=== PATIENT | male | born 1960 | race Two or more races ===

== ENCOUNTER 2019-12-27 09:50 | Emergency (ER) | payer OTHER ==
--- NOTE | 2019-12-27 11:02 | RADIOLOGY REPORT (SQ) ---
EXAM DESCRIPTION: CHEST SINGLE VIEW COMPLETED DATE/TIME: 12/27/2019 10:55 am REASON FOR STUDY: sob COMPARISON: None. EXAM PARAMETERS: NUMBER OF VIEWS: One view. TECHNIQUE: Single frontal radiographic view of the chest acquired. RADIATION DOSE: NA LIMITATIONS: None. FINDINGS: LUNGS AND PLEURA: No opacities, masses or pneumothorax. No pleural effusion. MEDIASTINUM AND HILAR STRUCTURES: No masses. Contour normal. HEART AND VASCULAR STRUCTURES: Heart normal in size. Normal vasculature. BONES: No acute findings. HARDWARE: None in the chest. OTHER: No other significant finding. IMPRESSION: NO ACUTE RADIOGRAPHIC FINDING IN THE CHEST. TECHNICAL DOCUMENTATION: JOB ID: [id number] 2010 [employer]- All Rights Reserved Reading location - IP/workstation name: [email or web address]
--- NOTE | 2019-12-27 11:18 | ER Document Report ---
ED General - General Chief Complaint: Shortness Of Breath Stated Complaint: SHORTNESS OF BREATH Time Seen by Provider: 12/27/19 10:16 Primary Care Provider: LENNY PEREIRA MD [Primary Care Provider] - Follow up as needed Notes: 59-year-old male presents the emergency department complaining of shortness of breath, wheezing, productive cough and rhinorrhea starting on December 08. Patient states that he flew into [place] on December 07. Complains that his mucus started out as white and then became clear and then last night became yellow. Denies fever, admits chills, denies sweats. Denies nausea or vomiting, admits some diarrhea, admits back pain when he has a cough. Denies any chest pain. Patient states he has a history of asthma, ran out of his Advair 6 days ago and has been using his Proventil every 4 hours and self treating with Mucinex. Complains that his doctor has not yet given him a prescription for azithromycin or any other antibiotic based off of his symptoms. - Related Data Allergies/Adverse Reactions: latex [Latex] Allergy (Verified 04/11/14 12:27) Home Medications: xyzal, singulair, advair, albuterol, cholestrol, metformin, citalopram, micardis, Past Medical History - General Information source: Patient - Social History Smoking Status: Never Smoker Chew tobacco use (# tins/day): No Frequency of alcohol use: Rare Drug Abuse: None Family History: Hypertension Patient has suicidal ideation: No Patient has homicidal ideation: No - Past Medical History Cardiac Medical History: Reports: Hx Hypercholesterolemia Pulmonary Medical History: Reports: Hx Asthma Endocrine Medical History: Reports: Hx Diabetes Mellitus Type 2 GI Medical History: Reports: Hx Gastroesophageal Reflux Disease Psychiatric Medical History: Reports: Hx Post Traumatic Stress Disorder - Immunizations Hx Diphtheria, Pertussis, Tetanus Vaccination: No Review of Systems - Review of Systems Constitutional: See HPI, Diaphoresis. denies: Fever EENT: See HPI, Nose congestion Cardiovascular: No symptoms reported Respiratory: See HPI, Cough, Short of breath, Wheezing. denies: Hurts to breathe Gastrointestinal: See HPI, Diarrhea Musculoskeletal: See HPI, Back pain -: Yes All other systems reviewed and negative Physical Exam - Vital signs Vitals: Temp Pulse Resp BP Pulse Ox 99.0 F 88 20 117/78 97 12/27/19 10:05 12/27/19 10:05 12/27/19 10:05 12/27/19 10:05 12/27/19 10:05 Interpretation: Normal - Notes Notes: GENERAL: Alert, interacts well. No acute distress. Voice consistent with nasal congestion. HEAD: Normocephalic, atraumatic EYES: Pupils equal, round and reactive to light, extraocular movements intact. ENT: Oral mucosa moist, tongue midline. NECK: Full range of motion, supple, trachea midline. LUNGS: Mild expiratory wheezing, no rales or rhonchi, no respiratory distress, no accessory muscle use. No tachypnea. HEART: Regular rate and rhythm, no murmurs, gallops, rubs. ABDOMEN: Soft, nontender, nondistended, bowel sounds present in all 4 quadrants. EXTREMITIES: Moves all 4 extremities spontaneously, no edema, radial pulses 2/4 bilaterally. No cyanosis. NEUROLOGICAL: Alert and oriented x3, normal speech. PSYCH: Normal mood, normal affect. SKIN: Warm, Dry, normal turgor. Course - Re-evaluation Re-evalutation: 12/27/19 11:16 Chest x-ray unremarkable. 12/27/19 11:16 There is no tachypnea, tachycardia or hypoxia. Patient is in no respiratory distress. No evidence of bacterial infection, no indication for pneumonia. In this asthmatic who appears to have a viral upper respiratory tract infection with acute wheezy bronchitis patient will be treated with steroids. Patient has since gotten all of his inhalers refilled. Patient will be discharged to home. Patient is moderate to high risk for COVID19, swab will be performed. - Vital Signs Vital signs: Temp Pulse Resp BP Pulse Ox 99.0 F 88 20 117/78 97 12/27/19 10:05 12/27/19 10:05 12/27/19 10:05 12/27/19 10:05 12/27/19 10:05 Discharge - Discharge Clinical Impression: Viral upper respiratory tract infection with cough Acute asthma exacerbation Qualifiers: Asthma severity: moderate Asthma persistence: persistent Qualified Code(s): J45.41 - Moderate persistent asthma with (acute) exacerbation Condition: Stable Disposition: HOME, SELF-CARE Additional Instructions: Please use nasal saline rinses such as a NetiPot or NeilMed Sinus Rinses. Please use nasal steroid such as Nasonex 1 squirt per nostril twice a day to decrease inflammation and swelling. Please also use zqcm-com-zzocxll decongestants according to their directions on the box such as Sudafed during the day and Benadryl at night. Please take the steroids as directed until they are gone. Today you have been tested for COVID19. Please self isolate until these test results come back or until you have been symptom free for at least 3 days. If you develop worsening shortness of breath please return to the emergency department. Your chest x-ray did not show any signs of pneumonia. You do not need antibiotics at this time. Prescriptions: Prednisone [Deltasone 20 mg Tablet] 2 tab PO DAILY #10 tablet Referrals: LENNY PEREIRA MD [Primary Care Provider] - Follow up as needed
[2019-12-27 11:38] LABS: A TYPE INFLUENZA AG POSITIVE (NEGATIVE); B INFLUENZA AG NEGATIVE (NEGATIVE)
[2019-12-27 12:47] VITALS: BP 117/89
== END 2019-12-27 12:48 | disposition home or self-care (01) ==
LOC: ER 09:50
DX: J11.1 Influenza due to unidentified influenza virus with other respiratory manifestations (principal); J45.41 Moderate persistent asthma with (acute) exacerbation; E78.00 Pure hypercholesterolemia, unspecified; E11.9 Type 2 diabetes mellitus without complications; Z91.040 Latex allergy status; Z79.84 Long term (current) use of oral hypoglycemic drugs
CPT/HCPCS: 71045; 87635; 87804; 99283

== ENCOUNTER 2020-01-01 15:07 | Emergency (ER) | payer OTHER ==
--- NOTE | 2020-01-01 15:30 | ER Document Report ---
ED Respiratory Problem - General Chief Complaint: Breathing Difficulty Stated Complaint: SHORTNESS OF BREATH Time Seen by Provider: 01/01/20 15:12 Primary Care Provider: LENNY PEREIRA MD [Primary Care Provider] - Follow up in 3-5 days Notes: Patient is a 59-year-old male who presents emergency department with a chief complaint of shortness of breath. Patient was seen here on 26 December and was tested for COVID 19 and influenza. Patient tested positive for influenza. Patient states that his symptoms have not been any better. Patient has been taking his albuterol inhaler, but states that he sometimes forgets to take his albuterol inhaler. He states that he continues to have phlegm and feels like it gets stuck on his epiglottis. Patient has a history of asthma, seasonal allergies, and hypertension. - Related Data Allergies/Adverse Reactions: latex [Latex] Allergy (Verified 04/11/14 12:27) Past Medical History - Social History Smoking Status: Never Smoker Frequency of alcohol use: None Drug Abuse: None Family History: Hypertension Patient has suicidal ideation: No Patient has homicidal ideation: No - Past Medical History Cardiac Medical History: Reports: Hx Hypercholesterolemia Pulmonary Medical History: Reports: Hx Asthma Endocrine Medical History: Reports: Hx Diabetes Mellitus Type 2 GI Medical History: Reports: Hx Gastroesophageal Reflux Disease Psychiatric Medical History: Reports: Hx Post Traumatic Stress Disorder - Immunizations Hx Diphtheria, Pertussis, Tetanus Vaccination: No Review of Systems - Review of Systems Notes: REVIEW OF SYSTEMS: CONSTITUTIONAL : Denies recent illness. Denies recent unintentional weight loss. See HPI. EENT: Denies eye, ear, throat, or mouth pain, discharge, or symptoms. See HPI. CARDIOVASCULAR: Denies chest pain. RESPIRATORY: See HPI. GASTROINTESTINAL: Denies nausea, vomiting, and diarrhea. Denies abdominal pain. Denies constipation. GENITOURINARY: Denies difficulty urinating, burning, blood in urine, urgency or frequency. MUSCULOSKELETAL: Denies neck and back pain. Denies joint pain or swelling. SKIN: Denies rash, itchiness, or lesions HEMATOLOGIC : Denies easy bruising or bleeding. LYMPHATIC: Denies swollen, painful, enlarged glands. NEUROLOGICAL: Denies no numbness or tingling denies weakness. Denies headache. Denies altered mental status. Denies alteration in speech. PSYCHIATRIC: Denies stress, anxiety, alteration in sleep patterns, or depression. All other systems reviewed and negative. Physical Exam - Vital signs Vitals: Temp Pulse Resp BP Pulse Ox 98.3 F 79 20 146/79 H 95 01/01/20 15:24 01/01/20 15:24 01/01/20 15:24 01/01/20 15:24 01/01/20 15:24 - Notes Notes: PHYSICAL EXAMINATION: GENERAL: Appears well, healthy, well-nourished, no acute distress. HEAD: Normocephalic, atraumatic. EYES: PERRL, conjunctiva normal, all extraocular movements intact, sclera nonicteric ENT: Moist mucous membranes. NECK: Supple, no noticeable swelling, redness, rash. Normal range of motion. LUNGS: Coarse breath sounds noted throughout all lung obrien. Expiratory wheezes also noted. CARDIOVASCULAR: S1-S2, regular rate, regular rhythm. Radial pulses 2+, normal. ABDOMEN: Normoactive bowel sounds. Soft, nontender, no guarding, no rebound tenderness, and no masses palpated. EXTREMITIES: Normal strength and range of motion, no pitting or edema. No cyanosis. NEUROLOGICAL: Moves all extremities upon command. Strength 5/5 in all extremities. PSYCH: Normal mood, normal affect. SKIN: Warm, dry. No rash, lesions, ulcerations noted. Normal skin turgor. Course - Re-evaluation Re-evalutation: 01/01/20 16:59 Patient's chest x-ray is negative. Due to the patient recently being on the flu and his breath sounds being coarse, he most likely has pneumonia and I will be starting him on azithromycin. He will follow-up with his primary care provider. He is in agreement with this plan. Follow-up precautions were given. Verbal discharge instructions were given to the patient. They verbalized understanding. They are stable for discharge. - Vital Signs Vital signs: Temp Pulse Resp BP Pulse Ox 98.3 F 66 16 132/80 H 92 01/01/20 17:00 01/01/20 17:00 01/01/20 17:00 01/01/20 17:00 01/01/20 17:00 Discharge - Discharge Clinical Impression: Shortness of breath Asthma Qualifiers: Asthma severity: moderate Asthma persistence: unspecified Asthma complication type: with acute exacerbation Qualified Code(s): J45.901 - Unspecified asthma with (acute) exacerbation Pneumonia Qualifiers: Pneumonia type: due to unspecified organism Laterality: unspecified laterality Lung location: unspecified part of lung Qualified Code(s): J18.9 - Pneumonia, unspecified organism Condition: Stable Disposition: HOME, SELF-CARE Additional Instructions: You were seen today in the emergency department for shortness of breath. You are being started on antibiotics. Take all your antibiotics as prescribed. Please follow-up with your primary care provider. Please continue taking your albuterol inhaler. Use the spacer provided to you. Continue Mucinex to help break up the mucus. Please continue quarantine. Prescriptions: Azithromycin [Zithromax 250 mg Tablet] 250 mg PO ASDIR PRN #6 tablet PRN Reason: Referrals: LENNY PEREIRA MD [Primary Care Provider] - Follow up in 3-5 days
--- NOTE | 2020-01-01 16:22 | RADIOLOGY REPORT (SQ) ---
EXAM DESCRIPTION: CHEST SINGLE VIEW IMAGES COMPLETED DATE/TIME: 01/01/2020 3:09 pm REASON FOR STUDY: shortness of breath; dizziness COMPARISON: 12/27/2019 EXAM PARAMETERS: NUMBER OF VIEWS: One view. TECHNIQUE: Single frontal radiographic view of the chest acquired. RADIATION DOSE: NA LIMITATIONS: None. FINDINGS: LUNGS AND PLEURA: No opacities, masses or pneumothorax. No pleural effusion. MEDIASTINUM AND HILAR STRUCTURES: No masses. Contour normal. HEART AND VASCULAR STRUCTURES: Heart normal in size. Normal vasculature. BONES: No acute findings. HARDWARE: None in the chest. OTHER: No other significant finding. IMPRESSION: NO ACUTE RADIOGRAPHIC FINDING IN THE CHEST. TECHNICAL DOCUMENTATION: JOB ID: [id number] 2010 [employer]- All Rights Reserved Reading location - IP/workstation name: [email or web address]
[2020-01-01 17:03] VITALS: BP 132/80
--- NOTE | 2020-01-02 09:26 | EKG REPORT ---
SEVERITY:- ABNORMAL ECG - SINUS RHYTHM NONSPECIFIC T ABNORMALITIES, INFERIOR LEADS : Confirmed by: Temo Denney 02-Jan-2020 09:26:21
== END 2020-01-01 17:00 | disposition home or self-care (01) ==
LOC: ER 15:07
DX: J18.9 Pneumonia, unspecified organism (principal); J45.901 Unspecified asthma with (acute) exacerbation; R06.02 Shortness of breath; I10 Essential (primary) hypertension; Z91.040 Latex allergy status; E11.9 Type 2 diabetes mellitus without complications; Z20.828 Contact with and (suspected) exposure to other viral communicable diseases
CPT/HCPCS: 71045; 87635; 93005; 93010; 99285